=== PATIENT | female | born 1985 | race Caucasian/White ===

== ENCOUNTER 2017-04-11 08:56 | Emergency (ER) | payer MEDICAID, SELFPAY ==
[~2017-04-11] VITALS: Ht 165.1 cm; Wt 128.0 kg
[2017-04-11 09:29] VITALS: BP 144/91
[2017-04-11] MEDS ORDERED: ALBUTEROL/IPRATROPIUM 2.5MG/0.5MG, 3 ML NPPB ONE (09:30)
[2017-04-11] MEDS ORDERED: ALBUTEROL/IPRATROPIUM 2.5MG/0.5MG, 3 ML ONE (09:40)
== END 2017-04-11 11:27 | disposition home or self-care (01) ==
LOC: ED 10:30
DX: B96.89 Other specified bacterial agents as the cause of diseases classified elsewhere (principal); J20.8 Acute bronchitis due to other specified organisms
CPT/HCPCS: 71020; 93005; 94640; 99284; J7620

== ENCOUNTER 2018-03-11 23:49 | Emergency (ER) | payer MEDICAID, OTHER ==
[~2018-03-11] VITALS: Ht 165.1 cm; Wt 126.4 kg
[2018-03-12] MEDS ORDERED: ORAL CONTRACEPTIVE PO (01:55)
[2018-03-12] MEDS ORDERED: CITA20TA9 PO (01:55)
[2018-03-12 01:57] VITALS: BP 152/62
== END 2018-03-12 02:32 | disposition home or self-care (01) ==
LOC: ED 03-12 02:26
DX: S93.612A Sprain of tarsal ligament of left foot, initial encounter (principal); X58.XXXA Exposure to other specified factors, initial encounter; Y93.89 Activity, other specified; Y92.830 Public park as the place of occurrence of the external cause; Y99.8 Other external cause status
CPT/HCPCS: 29515; 99284

== ENCOUNTER 2018-07-18 09:27 | Emergency (ER) | payer OTHER ==
[~2018-07-18] VITALS: Ht 165.1 cm; Wt 127.0 kg
[~2018-07-18 09:27] MED LIST: CITA20TA9 PO; ORAL CONTRACEPTIVE PO
[2018-07-18 09:46] VITALS: BP 144/89
[2018-07-18] MEDS ORDERED: DEXAMETHASONE 4 MG/ML, 1ML PO ONE (10:00)
[2018-07-18] MEDS ORDERED: DEXAMETHASONE 4 MG/ML, 5ML ONE (10:27)
[2018-07-18 11:30] LABS: RAPID INFLUENZA A Negative (Negative); RAPID INFLUENZA B Negative (Negative)
== END 2018-07-18 12:18 | disposition home or self-care (01) ==
LOC: ED 12:00
DX: J02.9 Acute pharyngitis, unspecified (principal)
CPT/HCPCS: 87081; 87400; 87880; 99283; J1100

== ENCOUNTER 2018-07-20 12:41 | Emergency (ER) | payer SELFPAY ==
[~2018-07-20] VITALS: Ht 165.1 cm; Wt 130.8 kg
[2018-07-20 12:46] VITALS: BP 131/79
[2018-07-20] MEDS ORDERED: DEXAMETHASONE 4 MG TABLET PO ONE (13:30)
[2018-07-20] MEDS ORDERED: DEXAMETHASONE 4 MG TABLET ONE (13:34)
--- NOTE | 2018-07-20 13:38 | NUR ---
pt medicated per emar, tolerated well. pt given dc instructions and script, educated regarding dx rx for omnicef. pt amb to dc desk with steady gait, nadn at dc.
== END 2018-07-20 13:39 | disposition home or self-care (01) ==
LOC: ED 13:33
DX: H66.002 Acute suppurative otitis media without spontaneous rupture of ear drum, left ear (principal); J00 Acute nasopharyngitis [common cold]; Z87.891 Personal history of nicotine dependence
CPT/HCPCS: 99283

== ENCOUNTER 2018-07-25 23:46 | Emergency (ER) | payer MEDICAID, OTHER ==
[~2018-07-25] VITALS: Ht 165.1 cm; Wt 128.0 kg
[2018-07-25 23:49] VITALS: BP 148/88
[2018-07-25] MEDS ORDERED: AZITHROMYCIN 250 MG TABLET ONE (23:59)
[2018-07-26] MEDS ORDERED: AZITHROMYCIN 500 MG TABLET PO ONE
--- NOTE | 2018-07-26 00:08 | NUR ---
pt medicated per mar and d/c home. pt has had z-harrison multiple times in the past and tolerated well. no s/s of acute distress. Triage vss.
== END 2018-07-26 00:10 | disposition home or self-care (01) ==
LOC: ED 07-26 00:09
DX: H66.92 Otitis media, unspecified, left ear (principal); J04.0 Acute laryngitis; Z88.0 Allergy status to penicillin
CPT/HCPCS: 99283